=== PATIENT | female | born 1995 | race African-American/Black ===

== ENCOUNTER 2021-10-03 12:04 | Emergency (ER) | payer SELFPAY ==
[2021-10-03 13:28] LABS: Bilirubin Neg (Negative); Blood, Urine 25 (Negative); Clarity Clear (Clear); Glucose, Urine (Dipstick) Normal (Negative); Ketone, Urine Negative (Negative); Leukocyte 500 (Negative); Nitrite Negative (Negative); Protein, Urine (Dipstick) 15 mg/dl (Neg-Trace); Urobilinogen Normal mg/dL (Less than 2)
[2021-10-03 13:29] LABS: Pregnancy Test - Urine (BHCG) Negative (Negative); Pregu Control Background? CLEAR/WHITE (CLR/WHITE); Pregu Control Bar Appear? YES (CONTROL BAR)
[2021-10-03 13:35] LABS: RBC/HPF 0-3 HPF (0-3)
[2021-10-03 13:36] LABS: Bacteria/HPF Rare-Few HPF (None Seen); Mucous/LPF 1+ LPF (<2+)
[2021-10-03 14:11] LABS: #Eosinphils 0.1 10x3/uL (0.0-0.5); #Monocytes 0.6 10x3/uL (0.0-1.1); #Neutrophils 4.1 10x3/uL (1.5-8.4); %Basophils 0.6 % (0.0-2.0); %Eosinophils 0.8 % (0.0-6.0); %Lymphocytes 33.1 % (18.0-47.0); %Monocytes 8.6 % (0.0-10.0); %Neutrophils 56.8 % (40.0-75.0); Hemoglobin 12.3 g/dL (12.0-15.5); Mean Corpuscular HGB CONC 31.5 g/dL (32.0-36.0); Mean Corpuscular Hemoglobin 28.6 pg (27.0-33.0); Mean Corpuscular Volume 90.7 fl (81.6-98.3); Mean Platelet Volume 10.5 fl (7.4-10.4); Platelet Count 404 10x3/uL (150-450); RBC Distribution Width 13.4 % (11.5-14.5); White Blood Cell (WBC) Count 7.2 10x3/uL (3.5-10.5)
[2021-10-03 14:24] LABS: ALT (SGPT) 20 U/L (8-55); AST (SGOT) 21 U/L (5-34); Albumin 4.2 g/dL (3.5-5.0); Alkaline Phosphatase 92 U/L (40-110); Anion Gap 11 mmol/L (10-20); BUN (Urea Nitrogen) 9 mg/dL (7.0-18.7); Bilirubin, Total 0.4 mg/dL (0.2-1.2); Calc. Creatinine Clearance 0 mL/min (70-130); Calcium 9.1 mg/dL (7.8-10.44); Carbon Dioxide 26 mmol/L (22-29); Chloride 107 mmol/L (98-107); Globulin 3.6 g/dL (2.4-3.5); Glucose 97 mg/dL (70-105); Potassium 3.4 mmol/L (3.5-5.1); Protein, Total 7.8 g/dL (6.0-8.3); Sodium 141 mmol/L (136-145)
[2021-10-03] MEDS ORDERED: cefTRIAXone\\ROCEPHIN 500 MG VIAL ONE (15:02)
[2021-10-03] MEDS ORDERED: Lidocaine 1% MPF 2 ML VIAL ONE (15:02)
[2021-10-04 20:57] LABS: Chlamydia by PCR Not Detected (NotDetected); GC by PCR Not Detected (NotDetected)
== END 2021-10-03 16:43 | disposition home or self-care (01) ==
LOC: CSHERS 12:04
DX: R10.30 Lower abdominal pain, unspecified (principal); E78.5 Hyperlipidemia, unspecified
CPT/HCPCS: 80053; 81003; 81015; 81025; 85025; 87480; 87491; 87510; 87591; 87660; 96372; 99284; J0696

== ENCOUNTER 2022-04-21 19:59 | Emergency (ER) | payer OTHER, SELFPAY | END 2022-04-21 22:17 | disposition home or self-care (01) | LOC: CSHERS 19:59 | DX: S93.602A Unspecified sprain of left foot, initial encounter (principal); E78.5 Hyperlipidemia, unspecified; W01.0XXA Fall on same level from slipping, tripping and stumbling without subsequent striking against object, initial encounter ==

== ENCOUNTER 2023-05-20 16:56 | Emergency (ER) | payer SELFPAY | END 2023-05-20 18:09 | disposition home or self-care (01) | LOC: CSHERS 16:56 | DX: S63.601A Unspecified sprain of right thumb, initial encounter (principal); W22.8XXA Striking against or struck by other objects, initial encounter ==

== ENCOUNTER 2023-11-19 22:51 | Emergency (ER) | payer SELFPAY | END 2023-11-19 23:25 | disposition home or self-care (01) | LOC: CSHERS 22:51 | DX: K04.7 Periapical abscess without sinus (principal) | CPT/HCPCS: 99282 ==

== ENCOUNTER 2024-11-19 08:33 | Emergency (ER) | payer SELFPAY ==
[2024-11-19] MEDS ORDERED: Bupivacaine PF 0.5% 30 ML VIAL ONE (08:48)
== END 2024-11-19 09:08 | disposition home or self-care (01) ==
LOC: CSHERS 08:33
DX: K02.9 Dental caries, unspecified (principal)
CPT/HCPCS: 96372; 99282; J0665